=== PATIENT | female | born 1950 | race African-American/Black ===

== ENCOUNTER 2016-10-18 11:55 | Observation (INO) | payer OTHER ==
--- NOTE | 2016-10-18 12:03 | PROVIDER DOCUMENTATION ---
HPI-Chest Pain - General Source: patient - History of Present Illness-CP Location: reports: central Chest Pain Radiation: reports: no radiation Quality of Pain: reports: tightness Severity in ED: mild Onset/Duration: unsure Timing: still present, constant Context/Activities at Onset: reports: none Modifying Factors: improves with: nothing Associated Symptoms: denies: back pain, diaphoresis, dizziness, fever/chills, nausea, shortness of breath, vomiting Nitro Today/Relief: 0.4 mg x 1, provided by ED Aspirin Treatment Today: 325 mg x 1, provided by ED Similar Symptoms Previously?: Yes Recently Seen Here or By Another Healthcare Provider: No <Mauricio Millan - Last Filed: 10/18/16 12:11> <Tom Campbell - Last Filed: 10/18/16 15:12> - General Chief Complaint: Chest Pain Stated Complaint: CP Time Seen by Provider: 10/18/16 12:02 Allergies/Adverse Reactions: Patient Allergies Allergy/AdvReac Type Severity Reaction Status Date / Time amlodipine besylate * Allergy Unknown Unknown Verified 08/15/16 11:40 [From Lotrel] benazepril HCl * Allergy Unknown Unknown Verified 08/15/16 11:40 [From Lotrel] ciprofloxacin [From Cipro] Allergy Unknown Unknown Verified 08/15/16 11:40 ciprofloxacin HCl * Allergy Unknown Unknown Verified 08/15/16 11:40 [From Cipro] Penicillins Allergy Unknown Unknown Verified 08/15/16 11:40 Home Medications: Home Medication List Medication Instructions Recorded Confirmed Last Taken Type Iron,Fm,Ps/Folic/B,C18/L.casei 1 each PO QAM 06/04/16 07/31/16 Unknown History [Fusion Plus Capsule] Minoxidil 2.5 mg PO DAILY 06/04/16 07/31/16 Unknown History Carvedilol [Coreg] 6.25 mg PO Q12HR #60 tablet 06/07/16 07/31/16 Unknown Rx Diltiazem C.d. [Cardizem Cd] 240 mg PO DAILY #30 capsule 06/07/16 07/31/16 Unknown Rx Hydralazine [Apresoline] 50 mg PO TID #90 tablet 06/07/16 07/31/16 Unknown Rx Multivitamins/Iron [Hemocyte Plus 1 each PO DAILY #0 capsule 06/07/16 07/31/16 Unknown Rx Capsule] Temazepam 15 mg PO QHS 07/31/16 07/31/16 07/30/16 21:00 History Bumetanide 1 mg PO DAILY #0 08/04/16 07/31/16 Unknown Rx Insulin Glargine [Lantus] 15 unit SUBQ DAILY #1 insuln.pen 08/04/16 Unknown Rx Polyethylene Glycol 3350 [Miralax] 17 gm PO DAILY #1 powd.pack 08/04/16 Unknown Rx Nitrofurantoin Macrocrystal 100 mg PO 4XDAY #20 capsule 08/17/16 Unknown Rx [Nitrofurantoin] - History of Present Illness-CP Nature of Presenting Problem: patient is a 66 y/o F that presents with chest pain/pressure that began this am. No shortness of breath, n/v/, or back pain. History of CAD , HTN, and CVA x 3. Patient is poor historian as well as family at scene per EMS. EMS reported patient has elevation in leads v1 and v2 but compared to old EKG from 08/15/16 she has had no change. (Mauricio Millan) Review of Systems - Adult - REVIEW OF SYSTEMS - ADULT Constitutional: denies: chills, fever Eyes: reports: no symptoms reported Ears, Nose, Mouth & Throat: reports: no symptoms reported Cardiovascular: reports: chest pain. denies: palpitations, syncope Respiratory: denies: cough, shortness of breath, wheezing Gastrointestinal: denies: abdominal pain, diarrhea, nausea, vomiting Genitourinary: reports: no symptoms reported Musculoskeletal: denies: back pain, joint pain, neck pain Integumentary: reports: no symptoms reported Neurological: reports: no symptoms reported Psychiatric: reports: no symptoms reported Endocrine: reports: no symptoms reported Hematologic/Lymphatic: reports: no symptoms reported Allergic/Immunologic: reports: no symptoms reported All Other Systems: Reviewed and Negative <Mauricio Millan - Last Filed: 10/18/16 12:11> Past History - Adult - PAST MEDICAL HISTORY-ADULT Review of Records: reports: Old Records Reviewed, Nursing Assessment Review, Medications Reviewed Cardiovascular: reports: CAD, HTN Respiratory: reports: asthma Gastrointestinal: reports: GERD Neurological: reports: CVA (CVA a year ago. Does not walk, can help with walker) , Seizures/Epilepsy Endocrine/Immune: reports: Diabetes Other Conditions: - PRIOR SURGERIES/PROCEDURES Surgical/Procedure History: reports: other (feeding tube) - PRIOR HOSPITALIZATIONS Prior Hospitalizations: reports: none - IMMUNIZATION STATUS Childhood Immunizations: See Nurse Assessment Flu Vaccine: See Nurse Assessment - FAMILY HISTORY Family History: reviewed, not pertinent - SOCIAL HISTORY Smoking: quit greater than 1 year, secondhand Living Situation: family <Mauricio Millan - Last Filed: 10/18/16 12:11> Physical Exam-General - PHYSICAL EXAM-ADULT Initial Vital Signs Reviewed: Yes - CONSTITUTIONAL General Appearance: alert, no apparent distress - EYES Eyes: PERRL/EOMI, pink conjunctivae - HEAD, EARS, NOSE, MOUTH & THROAT HENMT: normal ENT inspection, pharynx normal, other (dry oral mucosa) - NECK Neck: full range of motion, normal inspection - RESPIRATORY Respiratory: chest non-tender, lungs clear, normal breath sounds, no respiratory distress, no accessory muscle use - CARDIOVASCULAR Cardiovascular: regular rate, rhythm, no edema, no murmur - GASTROINTESTINAL (ABDOMEN) Abdominal Exam: normal bowel sounds, non tender, soft - MUSCULOSKELETAL Extremity: normal range of motion, normal inspection, no pedal edema - SKIN Integumentary: normal color, warm/dry - NEUROLOGIC Neurologic: grossly normal, no motor/sensory deficits - PSYCHIATRIC Psych/Mental Status: normal mood/affect, normal thought content, normal thought process, oriented x 3 <Mauricio Millan - Last Filed: 10/18/16 12:11> Progress - EKG 1 Time of EKG reading by physician:: 11:59 EKG Read and Signed by:: Tom Campbell EKG Interpretation (*Must complete 3 of following elements*): Abnormal Rate: 67 Rhythm: NSR [place]ack[place]: normal QRS: normal NH Interval: normal ST Wave: non-specific ST changes Prior EKG Comparison: unchanged from prior (08/15/16) <Mauricio Millan - Last Filed: 10/18/16 12:11> - XRAY 1 XRAY Study: Chest Impression: Normal, See EMR Report - CONSULTS/PCP/HOSPITALIST Notification #1 *Consult/PCP/Hospitalist*: Hospitalist Time Discussed: 14:12 Consult Disposition: Admit <Tom Campbell - Last Filed: 10/18/16 15:12> - PLAN OF CARE/RESULTS Progress/Plan/Lab Results: plan of care-cardiac work up (Mauricio Millan) Laboratory Tests 10/18/16 10/18/16 10/18/16 12:18 12:18 12:18 WBC 4.23 L RBC 4.44 Hgb 12.7 Hct 38.1 MCV 85.8 MCH 28.6 MCHC 33.3 RDW Std Deviation 13.7 Plt Count 225 MPV 12.1 H Immature Gran % (Auto) 0.0 Neut % (Auto) 58.9 Lymph % (Auto) 33.3 Bartholomew % (Auto) 5.0 Eos % (Auto) 2.6 Baso % (Auto) 0.2 Immature Gran # (Auto) 0.00 Neut # (Auto) 2.49 Lymph # (Auto) 1.41 Bartholomew # (Auto) 0.21 Eos # (Auto) 0.11 Baso # (Auto) 0.01 PT INR PTT (Actin FS) Sodium 140 Potassium 6.3 H* Chloride 102 Carbon Dioxide 23 L Anion Gap 15 BUN 48 H Creatinine 2.4 H Estimated GFR/1.73 m2 24 BUN/Creatinine Ratio 20 Glucose 93 Calculated Osmolality 292 Calcium 9.8 Magnesium 2.2 Total Bilirubin 0.39 AST 31 H ALT 18 Alkaline Phosphatase 104 Creatine Kinase 76 Troponin T Cad-C-Bqphlejchsq Pept 6708 H Total Protein 7.9 Albumin 4.3 Globulin 3.6 Albumin/Globulin Ratio 1.2 10/18/16 10/18/16 12:18 12:18 WBC RBC Hgb Hct MCV MCH MCHC RDW Std Deviation Plt Count MPV Immature Gran % (Auto) Neut % (Auto) Lymph % (Auto) Bartholomew % (Auto) Eos % (Auto) Baso % (Auto) Immature Gran # (Auto) Neut # (Auto) Lymph # (Auto) Bartholomew # (Auto) Eos # (Auto) Baso # (Auto) PT 10.2 INR 0.96 PTT (Actin FS) 20.5 L Sodium Potassium Chloride Carbon Dioxide Anion Gap BUN Creatinine Estimated GFR/1.73 m2 BUN/Creatinine Ratio Glucose Calculated Osmolality Calcium Magnesium Total Bilirubin AST ALT Alkaline Phosphatase Creatine Kinase Troponin T 0.033 Ifd-T-Yarddsmdcre Pept Total Protein Albumin Globulin Albumin/Globulin Ratio Orders Category Date Time Status Cardiac Monitoring DIRECTED Care 10/18/16 12:05 Active Saline Loc NOW Care 10/18/16 12:05 Active CHEST-PORTABLE [RAD] Stat Exams 10/18/16 12:05 Draft CBC WITH ELECTRONIC DIFF [HEME] Stat Lab 10/18/16 12:18 Completed CK PROFILE [SP CHEM] Stat Lab 10/18/16 12:18 Completed COMPREHENSIVE METABOLIC PANEL [CHEM] Stat Lab 10/18/16 12:18 Completed D-DIMER [CHEM] Stat Lab 10/18/16 12:18 Received MAGNESIUM [CHEM] Stat Lab 10/18/16 12:18 Completed PRO B-NATRIURETIC PEPTIDE Stat Lab 10/18/16 12:18 Completed PROTIME WITH INR [COAG] Stat Lab 10/18/16 12:18 Completed PTT [COAG] Stat Lab 10/18/16 12:18 Completed TROPONIN T Stat Lab 10/18/16 12:18 Completed Albuterol 2.5MG/Ipratrop 0.5MG [Duoneb (A & A)] Med 10/18/16 13:47 Discontinued 3 ml INH NOW ONE Aspirin Med 10/18/16 12:05 Discontinued 325 mg PO STAT STA Calcium Gluconate 1 gm Med 10/18/16 13:48 Active 0.9% Sodium Chloride Inj [Ns] 50 ml IV NOW Furosemide [Lasix] Med 10/18/16 13:51 Discontinued 40 mg IV NOW ONE Nitroglycerin Sl [Nitroglycerin] Med 10/18/16 12:05 Active 0.4 mg SL Q5M PRN PRN Aerosol Treatments Routine Oth 10/18/16 13:47 Active Aerosol Treatments Stat Oth 10/18/16 13:47 Active EKG [EKG] Stat Ther 10/18/16 11:54 Ordered EKG [EKG] Stat Ther 10/18/16 12:05 Ordered Vital Signs Temp Pulse Resp BP Pulse Ox 10/18/16 13:12 68 20 227/107 100 10/18/16 11:55 98.2 F 68 18 196/73 100 amlodipine besylate * [From Lotrel] Allergy (Unknown, Verified 08/15/16 11:40) Unknown benazepril HCl * [From Lotrel] Allergy (Unknown, Verified 08/15/16 11:40) Unknown ciprofloxacin [From Cipro] Allergy (Unknown, Verified 08/15/16 11:40) Unknown ciprofloxacin HCl * [From Cipro] Allergy (Unknown, Verified 08/15/16 11:40) Unknown Penicillins Allergy (Unknown, Verified 08/15/16 11:40) Unknown Pt does not remember what the reaction was it has been too long ago Iron,Fm,Ps/Folic/B,C18/L.casei [Fusion Plus Capsule] 1 each PO QAM 06/04/16 Minoxidil 2.5 mg PO DAILY 06/04/16 Carvedilol [Coreg] 6.25 mg PO Q12HR #60 tablet 06/07/16 Diltiazem C.d. [Cardizem Cd] 240 mg PO DAILY #30 capsule 06/07/16 Hydralazine [Apresoline] 50 mg PO TID #90 tablet 06/07/16 Multivitamins/Iron [Hemocyte Plus Capsule] 1 each PO DAILY #0 capsule 06/07/16 Temazepam 15 mg PO QHS 07/31/16 Bumetanide 1 mg PO DAILY #0 08/04/16 Insulin Glargine [Lantus] 15 unit SUBQ DAILY #1 insuln.pen 08/04/16 Polyethylene Glycol 3350 [Miralax] 17 gm PO DAILY #1 powd.pack 08/04/16 Nitrofurantoin Macrocrystal [Nitrofurantoin] 100 mg PO 4XDAY #20 capsule Laboratory 10/18/16 10/18/16 10/18/16 12:18 12:18 12:18 WBC RBC Hgb Hct MCV MCH MCHC RDW Std Deviation Plt Count MPV Immature Gran % (Auto) Neut % (Auto) Lymph % (Auto) Bartholomew % (Auto) Eos % (Auto) Baso % (Auto) Immature Gran # (Auto) Neut # (Auto) Lymph # (Auto) Bartholomew # (Auto) Eos # (Auto) Baso # (Auto) PT 10.2 INR 0.96 PTT (Actin FS) 20.5 L Sodium Potassium Chloride Carbon Dioxide Anion Gap BUN Creatinine Estimated GFR/1.73 m2 BUN/Creatinine Ratio Glucose Calculated Osmolality Calcium Magnesium Total Bilirubin AST ALT Alkaline Phosphatase Creatine Kinase Troponin T 0.033 Ija-D-Zschbxgpfvj Pept 6708 H Total Protein Albumin Globulin Albumin/Globulin Ratio 10/18/16 10/18/16 12:18 12:18 WBC 4.23 L RBC 4.44 Hgb 12.7 Hct 38.1 MCV 85.8 MCH 28.6 MCHC 33.3 RDW Std Deviation 13.7 Plt Count 225 MPV 12.1 H Immature Gran % (Auto) 0.0 Neut % (Auto) 58.9 Lymph % (Auto) 33.3 Bartholomew % (Auto) 5.0 Eos % (Auto) 2.6 Baso % (Auto) 0.2 Immature Gran # (Auto) 0.00 Neut # (Auto) 2.49 Lymph # (Auto) 1.41 Bartholomew # (Auto) 0.21 Eos # (Auto) 0.11 Baso # (Auto) 0.01 PT INR PTT (Actin FS) Sodium 140 Potassium 6.3 H* Chloride 102 Carbon Dioxide 23 L Anion Gap 15 BUN 48 H Creatinine 2.4 H Estimated GFR/1.73 m2 24 BUN/Creatinine Ratio 20 Glucose 93 Calculated Osmolality 292 Calcium 9.8 Magnesium 2.2 Total Bilirubin 0.39 AST 31 H ALT 18 Alkaline Phosphatase 104 Creatine Kinase 76 Troponin T Drp-N-Qsfnixlpare Pept Total Protein 7.9 Albumin 4.3 Globulin 3.6 Albumin/Globulin Ratio 1.2 (Tom Campbell) Departure <Mauricio Millan - Last Filed: 10/18/16 12:11> - Departure Time of Disposition Order: 14:12 Certified Medical Emergency: Emergent <Tom Campbell - Last Filed: 10/18/16 15:12> - Departure DIAGNOSIS: Acute hyperkalemia, Chronic kidney disease (CKD) stage G3a/A1, moderately decreased glomerular filtration rate (GFR) between 45-59 mL/min/1.73 square meter and albuminuria creatinine ratio less than 30 mg/g, Unstable angina Disposition: ADMITTED INPATIENT 09 Condition: Fair Referrals: None,PCP [Primary Care Provider] - - Critical Care Note Comments: Pt has elevated ddimer, lpt has chronic renal failure, wells criteria for PE is low less likley due Caitlin, pts vitals normal HR and saturations normal no pleuratic chest pain. will hold off on CTA, admitting pt for unstable angina CHF probably due to worsening of CKD, along with hyperkalemia (Tom Campbell) Attestation - Scribe Verification/Attestation Scribe:: Millan,Mauricio T. Acting as Scribe for:: Tom Campbell Scribe documention review:: This chart was documented by a scribe and accurately reflects the service the provider performed and the decisions made by the provider. <Mauricio Millan - Last Filed: 10/18/16 12:11> Physician Attestation - Physician Attestation I, the provider, attest to the following statement:: Tom Campbell Physician documentation Attestation:: This documentation recorded by the scribe accurately reflects the service I personally performed and the decisions made by me. <Mauricio Millan - Last Filed: 10/18/16 12:11>
[2016-10-18] MEDS ORDERED: ASPIRIN PO STA (12:05)
[2016-10-18] MEDS ORDERED: NITROGLYCERIN SL PRN (12:05)
[2016-10-18 12:35] LABS: MANUAL DIFF NEEDED? NO
[2016-10-18 12:39] LABS: BASO% 0.2 % (0.0-0.8); EOS# 0.11 X1000 (0.0-0.7); EOS% 2.6 % (0.0-10.0); HEMATOCRIT 38.1 % (37.0-47.0); HEMOGLOBIN 12.7 g/dL (12.0-16.0); LYMPH# 1.41 X1000 (1.2-3.4); LYMPH% 33.3 % (20.5-51.1); MCH 28.6 PG (27-31); MCHC 33.3 g/dL (33-37); MCV 85.8 FL (81-99); MONO# 0.21 X1000 (0.11-0.59); MPV 12.1 FL (7.4-10.4); NEUT% 58.9 % (42.2-75.2); PLT 225 X1000 (130-400); RBC 4.44 XMIL (4.2-5.4)
[2016-10-18 12:51] LABS: INR 0.96; PROTIME 10.2 Seconds (9.2-11.7); PTT 20.5 Seconds (22.0-36.0)
[2016-10-18 13:38] LABS: ALBUMIN 4.3 g/dL (3.5-5.0); CALCIUM 9.8 mg/dL (8.8-10.2); MAGNESIUM 2.2 mg/dL (1.5-2.7); POTASSIUM 6.3 mmol/L (3.5-5.1); TOTAL BILIRUBIN 0.39 mg/dL (0.20-1.00); TOTAL PROTEIN 7.9 g/dL (6.3-8.3)
--- NOTE | 2016-10-18 13:46 | Diag Imaging Result Document ---
PROCEDURE NAME: CHEST-PORTABLE - 10/18/2016 AP PORTABLE CHEST AT 1320 HOURS: FINDINGS: There is some blunting of the left costophrenic angle which has not changed since 08/15/2016 and is probably due to fibrosis. There are granulomatous calcifications in the paratracheal region. IMPRESSION: Stable chest.
[2016-10-18] MEDS ORDERED: DUONEB (A & A) INH ONE (13:47)
[2016-10-18] MEDS ORDERED: CALCIUM GLUCONATE 1 GM in NS 50 ML IV ONE (13:48)
[2016-10-18] MEDS ORDERED: LASIX IV ONE (13:51)
[2016-10-18] MEDS ORDERED: KAYEXALATE PO ONE (19:18)
--- NOTE | 2016-10-18 19:47 | HISTORY AND PHYSICAL ---
CHIEF COMPLAINT: Acute onset of chest pain and dyspnea reported as mild, constant. HISTORY OF PRESENT ILLNESS: Ms. Lopez is a 66-year-old, female, discharged on 08/17/2016 with a history of severe cognitive deficit and a prior CVA. She was brought from home due to a complaint of chest pain unrelieved with at home medications. Patient was noted to have multiple chronic UTIs in the past and has a history of poorly controlled hypertension with stage 3 CKD not on dialysis. REVIEW OF SYSTEMS: Twelve point review of systems is pertinent for items mentioned in HPI. Patient denies diaphoresis, dizziness, fever, chills, nausea, vomiting, coughing up any sputum or dysuria. ALLERGIES: Patient is allergic to amlodipine, benazepril, ciprofloxacin and penicillins. HOME MEDICATIONS: Minoxidil 2.5 mg p.o. daily, carvedilol 6.25 mg p.o. q.12 hours, diltiazem CD 240 p.o. daily, hydralazine 50 mg p.o. t.i.d., multivitamin with iron, temazepam 15 mg p.o. at bedtime, bumetanide 1 mg p.o. daily, Lantus 15 units subcutaneous daily, MiraLAX 17 g p.o. daily, Macrodantin 100 mg p.o. 4 times a day. PAST MEDICAL HISTORY: Significant for CVA approximately 1 year ago with inability to walk, CAD, hypertension, asthma, CKD stage 3, diabetes mellitus poorly controlled on insulin. PRIOR SURGICAL HISTORY: Reports a feeding tube placed prior. PRIOR HOSPITALIZATIONS: Last discharged July 2016. FAMILY HISTORY: Reviewed, not pertinent. SOCIAL HISTORY: Patient is a lifetime nonsmoker. She states she quit a little over 1 year prior. Patient living at home with a sitter. Denies alcohol and illicit substances. PHYSICAL EXAMINATION: VITAL SIGNS: Temperature 98.3 degrees, pulse 78, respirations 18, blood pressure 194/81, O2 saturation 100% on room air. CONSTITUTIONAL: Patient is alert, in no apparent distress. HEENT: Eyes: Pupils equal, round, and reactive to light. HEENT shows dry oral mucosa. NECK: Full range of motion. RESPIRATORY: Chest nontender. Lungs clear. Normal breath sounds. No respiratory distress. CARDIOVASCULAR: Regular rate and rhythm. No edema. No murmurs. GASTROINTESTINAL: Normal bowel sounds. Soft. No guarding or tenderness. MUSCULOSKELETAL: Shows poor lower extremity muscle tone. Otherwise within normal limits. SKIN: Warm and dry. NEUROLOGIC: Cranial nerves grossly intact. No motor or sensory deficits. Overtly though 3/5 strength in bilateral lower extremities. PSYCHIATRIC: Normal mood and affect. Normal thought processes. LABS: WBC of 4.23, hemoglobin and hematocrit of 12 and 38 respectively, MCV of 85.8, platelet count 225,000. Neutrophils 58.9. Coagulation studies within normal limits. D-dimer 5.79. Sodium 140, potassium 6.3, carbon dioxide 23, BUN of 48 with a creatinine of 2.4, AST of 31 with a BNP of 6708, troponin x10.033. X-RAY: Chest x-ray of 10/18/2016 shows stable chest with some blunting of left costophrenic angle, not changed since prior examination of 08/15 likely due to fibrosis. EKG: No overt changes. ASSESSMENT/PLAN: A 66-year-old female with 1. Chest pain. Multiple cardiac risk factors. Troponin x1 negative. Elevated BNP. We will continue to monitor overnight and consult Cardiology regarding any risk factor stratification needed. Continue MISTY protocol. 2. Acute delirium. We will continue to monitor fluid electrolyte panel. 3. Chronic kidney disease stage 3 with hyperkalemia. Lasix provided for volume overload. Hopefully that will decrease 1 dose of Kayexalate and continue to follow. The patient will be admitted to general medical floor on telemetry. No need for antibiotics at this time. We will place her on a diabetic diet. 4. Get physical therapy to start as soon as possible. 5. Follow with DVT prophylaxis and GI prophylaxis. 6. We will re-evaluate status post Cardiology evaluation and the further trending of troponins.
[2016-10-18] MEDS: LONITEN PO SCH (23:38)
[2016-10-18] MEDS: RESTORIL PO SCH (23:42)
[2016-10-18] MEDS: COREG PO SCH (23:42)
[2016-10-18] MEDS: LASIX IV SCH (23:43)
--- NOTE | 2016-10-19 05:41 | EKG Report ---
Test Performed on : 10/18/2016 11:59:07 AM Test Reason : CP Blood Pressure : / mmHG Vent. Rate : 067 BPM Atrial Rate : 067 BPM P-R Int : 156 ms QRS Dur : 084 ms QT Int : 424 ms P-R-T Axes : 069 004 158 degrees QTc Int : 448 ms Normal sinus rhythm. T wave abnormality, consider inferolateral ischemia Abnormal ECG When compared with ECG of 15-AUG-2016 12:23, No significant change was found Unconfirmed Result
[2016-10-19 07:22] LABS: ALBUMIN 3.5 g/dL (3.5-5.0); CALCIUM 9.6 mg/dL (8.8-10.2); HEMOGLOBIN A1C 5.1 % (4.8-6.0); MAGNESIUM 2.1 mg/dL (1.5-2.7); POTASSIUM 4.9 mmol/L (3.5-5.1); TOTAL BILIRUBIN 0.29 mg/dL (0.20-1.00)
--- NOTE | 2016-10-19 07:42 | PROGRESS NOTE ---
DATE: 10/19/2016 PRIMARY CARE PHYSICIAN: Isma Rowland MD SUBJECTIVE: Overnight, no issues or changes noted. Patient was admitted late last night, so none were expected. The patient states that she has had no recurrence of stated chest pain and rested in intervals comfortably. OBJECTIVE: Vital signs: Temperature 97.7 degrees, pulse 64, respirations 16, blood pressure down from 212/79 to 160/60. I/O's unmeasured. General: Physical exam shows a thin, female, in no acute distress. Difficult to arouse and minimally interactive. OP is clear. Mucous membranes are still dry. CV: Regular rate with an irregular rhythm noting PVCs, not apparently in atrial fibrillation. Chest: Clear to auscultation anteriorly with a 2/6 systolic ejection murmur best heard at the left upper sternal border. Abdomen: Soft, nontender, nondistended. Bowel sounds are positive. LABORATORY DATA: This a.m. have been received but are not available for further evaluation. Troponins have been measured overnight and show a slight decrease from 0.33 to 0.019. ASSESSMENT AND PLAN: A 66-year-old female with: 1. Chest pain. Typical with multiple risk factors. Troponins continue to be negative. We will follow BMP. Continue to monitor. Consult has been made for Cardiology regarding need for risk factor stratification. The patient is on MISTY protocol with decreased need at this time. 2. Chronic kidney disease stage 3 with hyperkalemia and a slight volume overload. Awaiting a.m. labs to re-evaluate; 1 dose of Kayexalate provided. The patient is on telemetry. If no acute response, we will provide assistance with Nephrology. At this time, the evaluation of the labs is the next step. I will continue to monitor today in Dr. Rowland's stead. We will go ahead and add the Lovenox at 30 mg subcutaneously for deep vein thrombosis prophylaxis. Otherwise continue medications as written currently. The patient is demonstrating no signs or symptoms of infectious process. So, no cultures have been drawn and no antibiotics provided at this time. We will continue to monitor.
[2016-10-19] MEDS: LASIX IV SCH ×2 (09:58→22:56)
[2016-10-19] MEDS: LONITEN PO SCH (09:58)
[2016-10-19] MEDS: HEMOCYTE PLUS CAPSULE PO SCH (09:59)
[2016-10-19] MEDS: COREG PO SCH ×2 (09:59→22:56)
[2016-10-19] MEDS: MARINOL PO SCH (09:59)
[2016-10-19] MEDS: LANTUS SUBQ SCH (09:59)
[2016-10-19] MEDS: CARDIZEM CD PO SCH (09:59)
[2016-10-19] MEDS: MIRALAX PO SCH (09:59)
--- NOTE | 2016-10-19 10:02 | CONSULTATION ---
DATE OF CONSULTATION: 10/19/2016 INDICATION: Chest pain. HISTORY OF PRESENT ILLNESS: Ms. Lopez is a 66-year-old black female with a history of a severe debilitating stroke in the past. She has left-sided hemiparesis since that event, but apparently is still able to ambulate at home with a walker. She was apparently brought in for complaints of chest pain. This occurred in a seated position, and she described it as a tightness in the mid to upper central chest area. It lasted for around 30 minutes. She had no other associated symptoms, no provokers or palliators. Today she does report that there is a component of it that is reproducible with palpation of the upper chest wall. She has no external signs of trauma or bony deformities in that upper chest area. She is not having pain presently. She has no previous evaluations by us before in the office and no previous stress tests or cardiac catheterizations on file, although she does say that she has a golf instructor that she has seen before, but she cannot recall the name. Some of the history is questionable given the patient has somewhat repetitive affirmative answers. PAST MEDICAL HISTORY: 1. Significant for debilitating stroke 1 year ago leaving her with left-sided hemiparesis. 2. Hypertension. 3. Asthma. 4. Chronic kidney disease stage 3. 5. Poorly controlled hypertension. 6. Poorly controlled diabetes. 7. Coronary disease is listed in her problem list, but I am not aware of an objective test identifying the coronary disease in this patient. SOCIAL HISTORY: She does not smoke. Presently, she lives at home with a sitter. No alcohol. FAMILY HISTORY: Significant for hypertension. REVIEW OF SYSTEMS: A 10-system review of systems is negative except for those things mentioned in the HPI. PHYSICAL EXAMINATION: Vital Signs: She is afebrile. Her heart rates since admission have been in the 60s to 70s. Her blood pressure is 160/60 presently, and during this admission, she has been markedly elevated, being anywhere from the 160s to the 220s systolic. General: She is in no acute distress. HEENT: Oropharynx is moist. She has poor dentition. Eye examination shows pink conjunctivae, white sclerae. Neck: Examination shows no obvious thyromegaly or thyroid tenderness. Cardiovascular: She is in a regular rate and rhythm. She has no obvious murmurs. She has no S3. She has no lower extremity edema. She has mild tenderness to palpation that is reproducible with palpation of the upper central chest area. This reproduces the pain that she was experiencing before. Chest: Exam is clear bilaterally. No increased work of breathing. Abdomen: Soft, nontender, nondistended. No obvious organomegaly. Skin: Exam is warm and dry throughout without any rashes. Neurological: Notable for left-sided hemiparesis. Psychiatric: She seems relatively alert. She gives reasonable answers to the questions, but again, a lot of her answers are in affirmative and some of them seem contradictory. She is in no acute distress. DIAGNOSTIC DATA: Her chest x-ray shows so blunting of the left costophrenic angle, which has been stable for a couple of months, probably a fibrotic type change. Some granulomas noted in the paratracheal region. She has an EKG from roughly noon yesterday showing sinus rhythm, rate of 67 beats per minute. She had T-wave inversions in I and aVL, as well as notably in V4, V5, and V6. She has no evidence for Q-waves. She last had an EKG on 08/15/2016 that seems relatively consistent with that. She had some slight deepening of the T-wave inversions in the lateral leads, but overall, I and aVL appear stable. She had an echocardiogram performed in May showing an EF of 65% to 70%. She has severe LVH with wall thicknesses of 2 cm. LVOT gradient was not able to be assessed secondary to the patient's inability to cooperate. Otherwise, no valvular issues were identified. Her laboratory data shows a white count of 4.2, hematocrit is 38, and her platelet count is 225,000. Her D-dimer was 5.79. Her sodium is 142, potassium 4.9, her BUN is 49, creatinine is 2.3. Her troponin has been negative times multiple sets. Her proBNP was elevated at 6390. ASSESSMENT: 1. Chest pain in a patient with multiple risk factors for coronary disease. 2. Significant chronic kidney disease, appearing to be stage 4 with a GFR of 26 most recently. 3. Hyperkalemia. 4. Stroke. PLAN: The patient has chest pain with typical and atypical features. She has an EKG abnormality that is stable for the last 2 months. We will check a myocardial perfusion scan, as well as an echocardiogram. We certainly need to consider possibility of pulmonary embolus, although she did not have any elevated heart rate or any hypoxia. Her heart rate could have been blunted by the beta-ladan and calcium channel ladan that she is on. In addition, she has a significant disability with her stroke, making that a possibility. We will check a V/Q scan today. Likely plan on stressing the patient in the morning if the V/Q scan is negative. We will check an EKG in the morning. I have adjusted her blood pressure medications to add in Isordil 10 t.i.d. Further recommendations to follow.
[2016-10-19] MEDS: PATIENT'S OWN MED PO SCH (10:54)
--- NOTE | 2016-10-19 12:10 | Diag Imaging Result Document ---
PROCEDURE NAME: LUNG SCAN / VQ - 10/19/2016 VENTILATION-PERFUSION LUNG SCAN: FINDINGS: Patient was injected with 5.8 mCi of technetium 99m MAA for the perfusion portion and received 40.3 mCi of DTPA aerosol for the ventilation portion of the study. There are no segmental or subsegmental absolute perfusion defects. No evidence of ventilation-perfusion mismatch. IMPRESSION: Normal study.
[2016-10-19] MEDS: ISORDIL PO SCH ×2 (12:59→17:00)
--- NOTE | 2016-10-19 17:26 | ECHO REPORT ---
ORDER DATE: 10/19/2016 INDICATION: Chest pain and abnormal proBNP. M-MODE MEASUREMENTS: Right ventricle: 2.5 cm. Left ventricle end diastole: 3.7 cm. Left ventricle end systole: 2.2 cm. Posterior wall: 1.6 cm. Interventricular septum: 1.4 cm. Left atrium: 3.8 cm. Aortic root: 3.2 cm. SUMMARY OF 2-DIMENSIONAL IMAGIN. This study is technically excellent. 2. The left ventricular function is hyperdynamic. The ejection fraction is estimated at 75%. There is significant left ventricular hypertrophy. Visually it appears to be severe. When careful measurement is made of the actual thickness of the humphries it is at least moderate. 3. Doppler suggested the presence of an intracavitary gradient due to the hyperdynamic left ventricle reaching up to 45 mmHg. 4. The aortic valve shows sclerosis of the cusp without a stenosis. Color flow mapping is unremarkable. 5. The tricuspid valve shows mild regurgitation. 6. The inferior vena cava is not dilated. 7. The pulmonary systolic pressure is estimated at 27 mmHg to 32 mmHg. 8. The pulmonic valve is normal with mild regurgitation. 9. The mitral annulus shows mild calcification of the leaflets but the mitral valve opens normally. 10.Pulse wave Doppler of mitral inflow shows reversal of the E and the A wave. 11.Tissue Doppler of septal and lateral mitral annulus averages 3 cm. 12.There is impaired left ventricular relaxation and probably elevation of the left atrial pressure. 13.There is a very trivial degree of mitral regurgitation. 14.The right ventricle is normal. It also appears to be somewhat hypertrophic. 15.There is a small circumferential pericardial effusion. It does not cause any tamponade. 16.There is no evidence of mass or thrombus. SUMMARY: In summary, this study shows: 1. Moderately hypertrophic ventricle with significantly increased contractility. The ejection fraction is probably on the order of 80%. 2. Intracavitary gradient secondary to the hyperdynamic left ventricle. 3. Impaired left ventricular relaxation. 4. Normal pulmonary pressure. 5. Small pericardial effusion. 6. No evidence of any significant valvular abnormality. Clinical correlation is recommended.
[2016-10-19] MEDS: RESTORIL PO SCH (22:56)
[2016-10-20 06:23] LABS: MANUAL DIFF NEEDED? NO
[2016-10-20 07:08] LABS: ALBUMIN 3.4 g/dL (3.5-5.0); CALCIUM 8.7 mg/dL (8.8-10.2); MAGNESIUM 2.1 mg/dL (1.5-2.7); POTASSIUM 5.1 mmol/L (3.5-5.1); TOTAL BILIRUBIN 0.2 mg/dL (0.20-1.00); TOTAL PROTEIN 6.1 g/dL (6.3-8.3)
--- NOTE | 2016-10-20 07:22 | EKG Report ---
Test Performed on : 10/20/2016 06:52:40 AM Test Reason : cp Blood Pressure : / mmHG Vent. Rate : 054 BPM Atrial Rate : 054 BPM P-R Int : 178 ms QRS Dur : 088 ms QT Int : 480 ms P-R-T Axes : 059 021 185 degrees QTc Int : [address] & T wave abnormality, consider inferolateral ischemia Abnormal ECG When compared with ECG of 18-OCT-2016 11:59, (Unconfirmed) No significant change was found Confirmed by Kristian FAULKNER, Kashif Adair ([id number]) on 10/20/2016 5:23:17 PM
[2016-10-20 07:28] LABS: BASO% 0.2 % (0.0-0.8); EOS# 0.12 X1000 (0.0-0.7); EOS% 2.1 % (0.0-10.0); HEMATOCRIT 29.9 % (37.0-47.0); HEMOGLOBIN 9.9 g/dL (12.0-16.0); LYMPH# 2.22 X1000 (1.2-3.4); LYMPH% 38.7 % (20.5-51.1); MCHC 33.1 g/dL (33-37); MCV 84.7 FL (81-99); MONO# 0.51 X1000 (0.11-0.59); MONO% 8.9 % (1.7-9.3); MPV 11.5 FL (7.4-10.4); NEUT% 50.1 % (42.2-75.2); PLT 232 X1000 (130-400); RBC 3.53 XMIL (4.2-5.4)
[2016-10-20] MEDS ORDERED: INSULIN PEN NEEDLES ONE (07:36)
--- NOTE | 2016-10-20 08:29 | PROGRESS NOTE ---
DATE: 10/20/2016 CONSULTATIONS: Include Dr. Ori Scott/Dr. Nolan Rojas, cardiology. SUBJECTIVE: Overnight the patient had no issues or concerns. The patient is currently in a state where she is minimally responsive and pleasantly demented, so without asking questions the likelihood of her complaining is very low. OBJECTIVE: Vital Signs: Temperature 98.6 degrees, pulse rate 53, respiratory rate 16, blood pressure 140/41, and O2 saturation 100% on room air. Noted the patient is complaining no longer chest pain. Input and output show minimal intake of meals. General: On physical exam, an emaciated female, in no acute distress. Pleasantly demented. HEENT and Neck: Shows pupils equal, round, reactive to light and accommodations. OP is demonstrating poor dentition and continues to be dry. No JVD. Cardiovascular: Regular rate with a 2/6 systolic ejection murmur and multiple PVCs. Chest: Clear to auscultation anteriorly with slight wheeze that clears with cough. Abdomen: Soft, nontender, nondistended. Bowel sounds scant, but present. Extremities: The lower extremities, no cyanosis, clubbing, or edema. Neurological: Cranial nerves 2 through 12 are grossly intact. DIAGNOSTIC DATA: Labs demonstrate a WBC of 5.4 with an hemoglobin and hematocrit drop from 12.7 to 9.9 and 29.9 respectively, platelet count normal at 232,000. Neutrophils still within normal limits. D-dimer was 5.79, sodium 139 with an anion gap of 14. BUN 58 and creatinine 2.4, up from 49 and 2.3 yesterday. Glucose ranging from 69 to 203. A1c of 5.1. Calcium 8.6 with phosphorus slightly low at 4.6. Ferritin level 215. BNP down from 6390 to 3904. Total protein and albumin noted to be within normal limits. Note MCV of 84.7. Reports show a lung V/Q scan that was within normal limits. Consultation per cardiology notes chest pain with typical and atypical features. Stable EKG abnormality. The plan is to check myocardial perfusion scan, along with a rule out of pulmonary embolism. ASSESSMENT: This is a 66-year-old female with: 1. Chest pain. High risk factor for coronary artery disease. 2. Chronic kidney disease stage 3 to 4 with glomerular filtration rate of 26. 3. Hyperkalemia. 4. History of cerebrovascular accident. PLAN: The patient is followed by Cardiology with plans for myocardial perfusion scan to rule out acute coronary event. A V/Q scan was normal. We will continue to hydrate slightly, but monitor the proBNP daily to ensure no fluid overload. We will also advise some physical therapy to see the extent to which the patient can receive ambulation. The patient can be discharged likely in the a.m., following the results of the myocardial perfusion scan, back to the current place in which she is living.
[2016-10-20] MEDS ORDERED: M.V.I.-12 10 ML, FOLIC ACID 1 MG, MAGNESIUM SULFATE 1 GM, THIAMINE 100 MG in NS 1,000 ML IV ONE (09:00)
[2016-10-20] MEDS: PATIENT'S OWN MED PO SCH (09:56)
[2016-10-20] MEDS: CARDIZEM CD PO SCH (09:58)
[2016-10-20] MEDS: LOVENOX SUBQ SCH (09:58)
[2016-10-20] MEDS: LONITEN PO SCH (09:58)
[2016-10-20] MEDS: COREG PO SCH ×2 (09:58→20:22)
[2016-10-20] MEDS: HEMOCYTE PLUS CAPSULE PO SCH (09:58)
[2016-10-20] MEDS: LASIX IV SCH ×2 (09:58→20:22)
[2016-10-20] MEDS: ISORDIL PO SCH ×3 (09:58→17:40)
[2016-10-20] MEDS: MARINOL PO SCH (09:58)
[2016-10-20] MEDS: MIRALAX PO SCH (09:59)
[2016-10-20] MEDS: LANTUS SUBQ SCH (10:00)
[2016-10-20] MEDS ORDERED: LEXISCAN ONE (14:55)
[2016-10-20] MEDS ORDERED: AMINOPHYLLINE ONE (15:09)
--- NOTE | 2016-10-20 17:22 | Diag Imaging Result Document ---
PROCEDURE NAME: MYOCARDIAL PERF SCAN, STR/REST - 10/20/2016 PROCEDURE: Same day rest/stress Lexiscan myocardial perfusion study. INDICATION: Chest pain. Patient has had a stroke. DESCRIPTION: The patient came into the nuclear lab, received a rest injection of technetium-99 sestamibi 10.8 mCi. Multiple tomographic views of the cardiac structure were obtained at rest. Subsequently, patient underwent infusion of Lexiscan per protocol 0.4 mg infused. At peak infusion, injected with technetium-99 sestamibi 31 mCi. Multiple tomographic views of the cardiac structure were obtained following the completion of the protocol. SUMMARY OF ELECTROCARDIOGRAPHIC PORTION OF THE STUDY: Resting electrocardiogram showed sinus bradycardia, rate 53 beats per minute. Resting ECG shows diffuse ST-T abnormality. Resting blood pressure 116/55. During the infusion of Lexiscan, the heart rate increased to a maximum of 65 beats per minute. Blood pressure dropped to 72/33. Patient reported no chest pain, shortness of breath, or palpitations. The ECG showed some exaggeration of the baseline abnormality. Following the completion of the infusion, the patient was reversed with aminophylline 125 mg one time. ECG did not really show any significant changes after the infusion of aminophylline. Blood pressure came back up to 100/44, and the pulse went down to 57. SUMMARY: Electrocardiographic response to the infusion of Lexiscan is deemed to be inconclusive due to the presence of extensive repolarization abnormality. SUMMARY OF THE MYOCARDIAL PERFUSION PORTION OF THE STUDY: Poststress tomographic views of the left ventricle showed a moderate in severity, moderate in extent mid to apical inferior wall defect. The rest images showed reversibility of this defect. The polar plots revealed the same. There is scintigraphic suggestion of inducible ischemia of moderate severity involving the mid to apical inferior wall of the left ventricle. Gated SPECT shows normal ejection fraction 77%. Lung/heart ratio is normal. TID could not be obtained. SUMMARY: This study showed: 1. Abnormal resting electrocardiogram with an inconclusive response to infusion of Lexiscan. 2. Abnormal poststress myocardial perfusion scan. There is a scintigraphic suggestion of inducible ischemia of moderate severity involving a moderate portion of the mid to apical inferior wall of the left ventricle. 3. Normal left ventricular systolic function, ejection fraction of 77%, with no evidence of wall motion abnormality. Ventricular chamber is small. Clinical correlation is strongly recommended.
[2016-10-20] MEDS: RESTORIL PO SCH (20:21)
[2016-10-21 06:10] LABS: MANUAL DIFF NEEDED? NO
[2016-10-21 06:15] LABS: BASO% 0.2 % (0.0-0.8); HEMATOCRIT 29.4 % (37.0-47.0); HEMOGLOBIN 9.8 g/dL (12.0-16.0); LYMPH# 2.23 X1000 (1.2-3.4); LYMPH% 43.7 % (20.5-51.1); MCH 28.4 PG (27-31); MCHC 33.3 g/dL (33-37); MCV 85.2 FL (81-99); MONO# 0.36 X1000 (0.11-0.59); MONO% 7.1 % (1.7-9.3); MPV 11.5 FL (7.4-10.4); PLT 221 X1000 (130-400); RBC 3.45 XMIL (4.2-5.4)
[2016-10-21 06:39] LABS: ALBUMIN 3.3 g/dL (3.5-5.0); CALCIUM 8.6 mg/dL (8.8-10.2); MAGNESIUM 2.3 mg/dL (1.5-2.7); POTASSIUM 5.2 mmol/L (3.5-5.1); PREALBUMIN 21.4 mg/dL (20-40); TOTAL BILIRUBIN 0.16 mg/dL (0.20-1.00); TOTAL PROTEIN 6.6 g/dL (6.3-8.3)
--- NOTE | 2016-10-21 07:34 | DISCHARGE SUMMARY ---
ADMISSION DATE: 10/18/2016 DISCHARGE DATE: 10/21/2016 DISCHARGE DIAGNOSES: 1. Chest pain with abnormal myocardial perfusion stress study. 2. Acute on chronic diastolic congestive heart failure. 3. Chronic stage 4 kidney disease with hyperkalemia. 4. Hypertension. 5. Elevated D-dimer levels with normal V/Q scan. HOSPITAL COURSE: Ms. Lopez is a 66-year-old female who has history of severe cognitive deficit and prior CVA. She was brought in with complaint of having chest pain unrelieved with home medicines. She has had multiple recurrent UTIs in the past and therefore, she was admitted to the hospital for further evaluation and care. Here at the hospital, she was found to have hyperkalemia that was treated with Kayexalate orally. She chest pain and therefore Cardiology consultation was obtained. Serial cardiac enzymes were negative but her D-dimer was elevated. Because of which, a V/Q scan was obtained that was found to be negative for any pulmonary thromboembolism. The patient had a significantly elevated proBNP and therefore, she was treated with IV Lasix and later on, she was diagnosed as having acute-on- chronic diastolic congestive heart failure. An echocardiogram was obtained at the hospital that was done on 10/19/2016 that showed ejection fraction of approximately 80%. With no valvular abnormality. Moderately hypertrophic ventricle with significantly increased contractility was noted, however. She was seen by Cardiology and a myocardial nuclear perfusion scan was obtained that was found to be abnormal showing inducible ischemia of moderate severity involving a moderate portion of the mid to apical inferior wall of the left ventricle. Left ventricular ejection fraction was estimated at 77%. The patient has been started on isosorbide 10 mg 3 times a day which will be continued as outpatient. She has not been having any chest pain, and therefore , I am going to let her go home today. She will follow up with Cardiology in about a week for further care, although medical management is recommended at this point. DISCHARGE MEDICATIONS: 1. Imdur 30 mg orally once daily. 2. Bumetanide 1 mg orally once daily in the morning. 3. Carvedilol 6.25 mg orally twice daily. 4. Diltiazem CD 240 mg orally once daily. 5. Marinol 2.5 mg orally once daily. 6. Hydralazine 50 mg orally 3 times a day. 7. Lantus insulin 15 units subcutaneously once daily. 8. Multivitamin orally once daily. 9. Temazepam 15 mg orally once daily at bedtime as needed for insomnia. 10. MiraLAX 17 g orally once daily. FOLLOWUP: She will [facility] 5 days and follow up with Dr. Isma Rowland in approximately 1-2 weeks. CONDITION: Stable. DISPOSITION: Home. MTDD
[2016-10-21] MEDS ORDERED: INSULIN PEN NEEDLES ONE (07:47)
[2016-10-21 08:20] VITALS: BP 142/48
[2016-10-21] MEDS: CARDIZEM CD PO SCH (08:44)
[2016-10-21] MEDS: LONITEN PO SCH (08:44)
[2016-10-21] MEDS: HEMOCYTE PLUS CAPSULE PO SCH (08:45)
[2016-10-21] MEDS: LANTUS SUBQ SCH (08:45)
[2016-10-21] MEDS: COREG PO SCH (08:45)
[2016-10-21] MEDS: LOVENOX SUBQ SCH (08:45)
[2016-10-21] MEDS: ISORDIL PO SCH ×2 (08:45→15:23)
[2016-10-21] MEDS: APRESOLINE PO SCH ×2 (08:45→15:23)
[2016-10-21] MEDS: MIRALAX PO SCH (08:45)
[2016-10-21] MEDS: PATIENT'S OWN MED PO SCH (08:46)
[2016-10-21] MEDS: MARINOL PO SCH (08:48)
[2016-10-21] MEDS ORDERED: BUMEX PO SCH (09:00)
== END 2016-10-21 18:22 | disposition home or self-care (01) ==
LOC: ED 11:55 → SUPCPDRO 11:55 → INTOOBSV 17:58 → 3N 17:58
PROVIDERS: ADMIT Family Medicine; ATTEND Family Medicine
DX: R07.89 Other chest pain (principal); R94.39 Abnormal result of other cardiovascular function study; E87.5 Hyperkalemia; N18.4 Chronic kidney disease, stage 4 (severe); E11.22 Type 2 diabetes mellitus with diabetic chronic kidney disease; E11.65 Type 2 diabetes mellitus with hyperglycemia; I13.0 Hypertensive heart and chronic kidney disease with heart failure and stage 1 through stage 4 chronic kidney disease, or unspecified chronic kidney disease; I50.33 Acute on chronic diastolic (congestive) heart failure; I69.354 Hemiplegia and hemiparesis following cerebral infarction affecting left non-dominant side; R94.31 Abnormal electrocardiogram [ECG] [EKG]; R79.1 Abnormal coagulation profile; R74.8 Abnormal levels of other serum enzymes; R41.0 Disorientation, unspecified; K21.9 Gastro-esophageal reflux disease without esophagitis; J45.909 Unspecified asthma, uncomplicated; Z93.1 Gastrostomy status; Z87.891 Personal history of nicotine dependence; Z79.4 Long term (current) use of insulin; Z79.899 Other long term (current) drug therapy; Z87.440 Personal history of urinary (tract) infections; Z82.49 Family history of ischemic heart disease and other diseases of the circulatory system
CPT/HCPCS: 71010; 78452; 78582; 80053; 82550; 82728; 82746; 82948; 83036; 83735; 83880; 84100; 84134; 84484; 85025; 85379; 85610; 85730; 93005; 93010; 93017; 93306; 94640; 94762; 96365; 96375; A9500; A9539; A9540; J0280; J0610; J1650; J1940; J3411; J3475; J7030; J0820